=== PATIENT | male | born 1985 | race African-American/Black ===

== ENCOUNTER 2018-08-27 02:30 | Emergency (ER) | payer OTHER ==
[~2018-08-27] VITALS: Ht 180.3 cm; Wt 79.4 kg
[2018-08-27 03:32] VITALS: BP 128/88
== END 2018-08-27 03:57 | disposition home or self-care (01) ==
LOC: ER 02:30
DX: Z02.89 Encounter for other administrative examinations (principal)

== ENCOUNTER 2020-03-19 13:59 | Emergency (ER) | payer OTHER ==
[~2020-03-19] VITALS: Ht 185.4 cm; Wt 79.4 kg
[2020-03-19 14:03] VITALS: BP 126/87
== END 2020-03-19 14:13 | disposition home or self-care (01) ==
LOC: ER 13:59
DX: F16.10 Hallucinogen abuse, uncomplicated (principal); M25.522 Pain in left elbow